=== PATIENT | male | born 1945 | race Caucasian/White ===

== ENCOUNTER 2017-11-10 08:25 | Day surgery (SDC) | payer MEDICARE ==
[2017-11-08 11:09] VITALS: BMI 26.6
[~2017-11-10 08:25] MED LIST: LACTATED RINGERS 1,000 ML IV SCH
[2017-11-10] MEDS ORDERED: LIDOCAINE 1% 20 ML VIAL (10MG/ML) FOR IV START INTRADERMA ONE (10:08)
[2017-11-10 10:12] VITALS: TEMP 97
[2017-11-10] MEDS ORDERED: LIDOCAINE 1% INJ 10MG/ML (20 ML MDV) ONE (10:48)
[2017-11-10] MEDS ORDERED: PROPOFOL 10 MG/ML 20 ML VIAL IV ONE (10:48)
--- NOTE | 2017-11-10 11:12 | P.PCN ---
Date of Procedure: 11/10/17 Procedure(s) Performed: Procedure: Esophagogastroduodenoscopy and biopsy. Preoperative diagnosis: History of Banks's esophagus. Postoperative diagnosis: Banks's esophagus, multiple biopsies obtained at 2 different levels to rule out dysplasia. Preparation sedation: Were provided by anesthesia. Brief clinical history: The patient is 72-year-old male with history of reflux disease and Banks's esophagus. His last exam was October 30, 2015. He remains on PPI on an every other day schedule. No dysphagia, bleeding or anemia. This is part of his surveillance. Procedure: With the patient on his left lateral decubitus position and after informed consent and adequate sedation, I passed the Olympus-GIF 160 video upper endoscope through the cricopharyngeus down the esophagus. The autumn-GE junction was at around 25 cm from the incisors. Proximal to that the esophagus did not show any erosions or ulcers. There were no strictures. The tubular esophagus continued for another 10 cm or so defining a segment of Banks's esophagus. Then there is a moderately sized hiatal hernia following which the endoscope was advanced to the rest of the stomach which was insufflated with air and inspected in detail including the retroflex view in the cardia. Finally , the endoscope was passed through the pylorus into the duodenum. The stomach and duodenum appeared within normal limits. The Banks's segment did not show any ulcers or masses or strictures. I obtained multiple biopsies from the Banks's esophagus at 2 levels 5 cm apart with 4 pieces, one from each quadrant. 2 different set of specimens were sent to pathology. The patient tolerated the procedure well. Plan: The patient was reassured. Will await pathology results. I anticipate repeating this exam in around 2-3 years. He will follow up with you as planned.
[2017-11-10 11:20] VITALS: RESP 18
[2017-11-10 11:52] VITALS: BP 125/84; PULSE 59
== END 2017-11-10 12:10 | disposition home or self-care (01) ==
LOC: ORWHC2ENDO 08:25
DX: K22.70 Barrett's esophagus without dysplasia (principal); K44.9 Diaphragmatic hernia without obstruction or gangrene; K21.9 Gastro-esophageal reflux disease without esophagitis; M19.90 Unspecified osteoarthritis, unspecified site; Z79.899 Other long term (current) drug therapy
CPT/HCPCS: 88305; 43239; J2001; J2704

== ENCOUNTER → 2018-07-20 | Outpatient (CLI) | payer MEDICARE | END | disposition home or self-care (01) | LOC: LABPAT 08:00 | PROVIDERS: ATTEND Orthopaedic Surgery | DX: Z01.812 Encounter for preprocedural laboratory examination (principal) | CPT/HCPCS: 87070 ==

== ENCOUNTER 2018-08-14 08:25 | Inpatient (IN) | payer MEDICARE ==
--- NOTE | 2018-08-13 11:59 | HP ---
HISTORY AND PHYSICAL REASON FOR ADMISSION: Surgery 08/14/2018 Doug Kent is a 73-year-old patient seen with symptomatic left knee osteoarthritis. We discussed treatment options. He elected to proceed with left total knee arthroplasty. Consent was obtained. Medical clearance was provided by Dr. Huang. PAST MEDICAL HISTORY: Gastroesophageal reflux disease. PAST SURGICAL HISTORY: Right total knee arthroplasty. DAILY MEDICATIONS: Prilosec, ibuprofen, aspirin. ALLERGIES: None. SOCIAL HISTORY: Denies current tobacco use. PHYSICAL EXAMINATION: Evaluation of the left knee range of motion -3 to 90. Tenderness medial joint line. Crepitus medial and patellofemoral compartments with range of motion. Pain with patellofemoral compression. Ligaments are stable. Hip rotation is without pain. Distal neurovascular exam is intact. RADIOGRAPHS: Radiographs of the left knee reveal severe osteoarthritic changes. IMPRESSION: 1. Left knee osteoarthritis. 2. Gastroesophageal reflux disease. PLAN: Left total knee arthroplasty. Surgery 08/14/2018. MMODL / IJN: [id number] /
[~2018-08-14 08:25] MED LIST changes: +ACETAMINOPHEN TAB 500 MG TAB PO ONE; +DEXAMETHASONE SOD PHOSPHATE 10 MG/ML 1 ML VIAL IV ONE; +HYDROmorphone 0.5 MG/0.5 ML SYRINGE IVP PRN; -LACTATED RINGERS 1,000 ML IV SCH; +MELOXICAM 7.5 MG TAB PO ONE; +MIDAZOLAM (PF) 2 MG/2 ML VIAL IV PRN; +ONDANSETRON 4 MG/2 ML VIAL IVP ONE; +PANTOPRAZOLE 40 MG TABLET PO SCH; +TRANEXAMIC ACID 1,000 MG in SODIUM CHLORIDE 0.9% 50 ML IVPB ONE; +ceFAZolin IN SWFI 2 GM/20 ML SYRINGE IVP ONE
[2018-08-14] MEDS: LACTATED RINGERS 1,000 ML IV SCH ×2 (08:47→14:09)
[2018-08-14] MEDS ORDERED: fentaNYL (PF) 50 MCG/ML 2 ML AMP IV ONE (09:07)
[2018-08-14] MEDS ORDERED: ROPIVACAINE 246.25 MG, EPINEPHrine 0.5 MG, KETOROLAC 30 MG, cloNIDine HCL/PF 80 MCG, WA... MISCELLANE ONE ×5 (09:11)
[2018-08-14] MEDS ORDERED: ROPIVACAINE 1,100 MG, SODIUM CHLORIDE 0.9% 500 ML 330 ML MISCELLANE PRN ×2 (09:28)
--- NOTE | 2018-08-14 09:29 | P.ONQ ---
Anesthesiology Proc Note - PNB - Peripheral Nerve Block Performed Left Adductor Canal Infusion Time Out Performed: Yes Procedure Start Time: :06 Procedure Stop Time: :16 Indication: Acute Post-Operative Pain, Analgesia, Requested by physician Sedation Type: Sedate with meaningful contact maintained Preparation: Sterile Prep Position: Supine Catheter: Indwelling Needle Types: On-Q Needle Size: 100mm (4") Needle Gauge: 21 Technique: Ultrasound Injectate: 0.5% Ropivacaine (see comment for volume) (20cc) Blood Aspirated: No Pain Paresthesia on Injection Noted: No Resistance on Injection: Normal Events: Uneventful and Well Tolerated
[2018-08-14] MEDS ORDERED: TRANEXAMIC ACID 1,000 MG/10 ML VIAL ONE (09:58)
[2018-08-14] MEDS ORDERED: SODIUM CHLORIDE 0.9% 100 ML BAG ONE (09:58)
[2018-08-14] MEDS ORDERED: MIDAZOLAM 2 MG/2 ML VIAL ONE (09:58)
[2018-08-14] MEDS ORDERED: fentaNYL (PF) 50 MCG/ML 2 ML AMP ONE (09:58)
[2018-08-14] MEDS ORDERED: ceFAZolin 3,000 MG in SODIUM CHLORIDE 0.9% IRRIGATIO 3,000 ML IRRIGATION ONE (10:31)
[2018-08-14] MEDS ORDERED: LACTATED RINGERS 1,000 ML IV ONE (11:56)
[2018-08-14] MEDS ORDERED: HYDROmorphone 0.5 MG/0.5 ML SYRINGE IVP PRN ×3 (12:00)
[2018-08-14] MEDS ORDERED: HYDROcodone/APAP 5-325MG 1 EACH TAB PO PRN ×2 (12:00)
[2018-08-14] MEDS ORDERED: NALOXONE 0.4 MG/ML 1 ML VIAL IV PRN (12:00)
[2018-08-14] MEDS ORDERED: ONDANSETRON 4 MG/2 ML VIAL IVP PRN (12:00)
--- NOTE | 2018-08-14 12:00 | P.OP ---
Date of Procedure: 08/14/18 Preoperative Diagnosis: Left knee osteoarthritis Postoperative Diagnosis: Left knee osteoarthritis Procedure(s) Performed: Left total knee arthroplasty Implants: 1. She attune size 7 cruciate retaining cemented femur 2. She attune size 7 fixed bearing cemented tibial baseplate 3. [place] attune cruciate retaining 5 mm polyethylene tibial insert 4. [place] attune 41 mm all polyethylene cemented patella Anesthesia: regional (Adductor canal catheter), local, spinal Surgeon: Thomas Varela Garnetter #1: Milan Garner Estimated Blood Loss (ml): 30 Pathology: other (Bone) Condition: stable Disposition: PACU Indications for Procedure: 73-year-old patient seen with symptomatic left knee osteoarthritis. After having treatment options discussed, he elected to proceed with total knee arthroplasty Operative Findings: See description of procedure Description of Procedure: Patient was taken to the operative suite after having an adductor canal catheter placed by the department of anesthesia. Patient underwent a spinal anesthetic by the department of anesthesia. Patient was given preoperative IV intake antibiotics and TXA. A well-padded tourniquet was placed about the left lower extremity. The lower extremity was then prepped and draped in the normal sterile orthopedic fashion. The extremity was elevated, a tourniquet was insufflated to 300. A standard anterior incision was made sharply through skin. Dissection was taken down through the subcutaneous soft tissues down to the extensor mechanism. A medial arthrotomy was performed, patella was everted and knee was flexed. There was advanced osteoarthritis noted. I introduced my distal intramedullary femoral drill. I then introduced the distal femoral cutting jig. [place] DIAZ secured the cutting jig with 2 pins. I held retractors in position while [place]Z performed the distal femoral resection through the guide area we now removed her distal femoral cutting guide. We now placed our 4-in-1 femoral cutting block and positioned and it was secured with 2 pins by [place] D[place]Z while I held the block in position. The distal femoral finishing was now completed. A proximal tibial cutting guide was positioned. I held the guide in the appropriate position with both hands well [place] DIAZ inserted stabilizing pins into the guide. Proximal tibial cut was made. We now placed a trial femoral component into position, along with an appropriate size tibial tray and insert. We now took the knee through range of motion and had full extension good flexion and good overall soft tissue balance noted. The patella was everted and stabilized with 2 towel clips held by [place] DIAZ while I performed a flush with patellar quad tendon utilizing a fresh sawblade. We templated the patella, appropriate drill holes were made. An appropriate trial patella was positioned, knee was taken through full range of motion with the patella tracking very nicely. The trial patella was removed. Drill holes were made through the femoral component. All trial components were removed after marking off the appropriate rotation of the tibia. Retractors were now positioned along the proximal tibia. An appropriate keel punch was made with the appropriate size tibial guide by myself on [place] D[place]Z assisted by holding retractors. At this point appropriate size implants were chosen and opened. The joint was irrigated copiously with pulse lavage mechanical irrigation. The posterior capsule was infiltrated with local analgesic. The wound was irrigated with pulse lavage mechanical irrigation. We mixed antibiotic methylmethacrylate. We placed the knee into flexion. We placed multiple retractors assisted by [place] D[place]Z to expose the proximal tibia. Once the methyl methacrylate was ready, the tibial component was cemented into place removing any excess methylmethacrylate form by both myself and [place] DIAZ. The femoral component was cemented into place removing the removing any excess methylmethacrylate performed by both myself and [place] DIAZ. We then inserted the appropriate size polyethylene tibial insert. We made sure that it was locked into position. We took the knee into full extension, and then back in a flexion making sure we had removed any excess methylmethacrylate. The patellar component was then cemented down and secured with clamp. Excess methylmethacrylate removed. We kept the knee in full extension, patellar clamp in position until methylmethacrylate had hardened. Once it had hardened the patellar clamp was removed. The knee was taken through full range of motion. The patella tracked nicely. There was good soft tissue balancing. The tourniquet was now released. Additional hemostasis was achieved via electrocautery. A second gram of TXA was given. The wound again was irrigated with pulse lavage mechanical irrigation. The superficial soft tissues were infiltrated local analgesic. The extensor mechanism was repaired with Vicryl. We checked the repair with range of motion and it was stable. The subcutaneous soft tissues were repaired with Vicryl in layers. The skin was approximated with pernio/Dermabond. Sterile dressings were applied followed by loose web roll and Festus bandage. The patient was transferred to a bed, and taken to recovery in stable and satisfactory condition. North DIAZ assisted with this complex procedure.
--- NOTE | 2018-08-14 12:50 | XR ---
EXAMINATION TYPE: XR knee limited LT DATE OF EXAM: 08/14/2018 CLINICAL HISTORY: Left knee pain and arthritis status post total knee replacement. TECHNIQUE: Portable AP and crosstable lateral views of the left knee are obtained immediately postop eratively. COMPARISON: None FINDINGS: Metallic hardware from total left knee arthroplasty is seen and appears satisfactory in al ignment and position. There is evidence of recent surgery with subcutaneous emphysema and soft tissu e swelling noted. IMPRESSION: METALLIC HARDWARE FROM TOTAL LEFT KNEE ARTHROPLASTY IS SATISFACTORY IN ALIGNMENT.
[2018-08-14 13:34] VITALS: BMI 28.3
--- NOTE | 2018-08-14 14:40 | P.CONS ---
History of Present Illness - Reason for Consult Consult date: 08/14/18 medical management Requesting physician: Thomas Varela - History of Present Illness This is a 73-year-old male who presented for an elective total left knee arthroplasty with Dr. Varela. Patient has known past medical history of GERD , osteoarthritis, Banks's esophagus in which he follows with Dr. Escobedo, patient reports last EGD proximally 3 years ago. Patient also reports he's had multiple orthopedic surgeries including his right total knee approximately 3 years ago. At this time patient is resting comfortably in bed. Patient denies any complaints at this time. Patient's heart rate is low in the 50s. Patient denies any significant cardiac history. Heart rate does seem to be improving we 'll place patient on telemetry throughout night and continue to monitor closely. Patient denies chest pain or shortness of breath. Patient denies nausea vomiting or diarrhea. Patient denies any urinary burning or frequency. Review of Systems please refer to HPI otherwise unremarkable Past Medical History Past Medical History: GERD/Reflux, Osteoarthritis (OA) Additional Past Medical History / Comment(s): HX OF BARRETTS ESOPHAGUS., LEFT KNEE PAIN - WEARS SLEEVE SUPPORT. , PATIENT STATES RECENT UTI AND COMPLETED ANTIBIOTIC PER DR GARCIA. History of Any Multi-Drug Resistant Organisms: None Reported Past Surgical History: Joint Replacement, Orthopedic Surgery Additional Past Surgical History / Comment(s): Right leg fx. & repair, EGD, colonoscopy, rt knee replacement, Carpal Tunnel Bilat. Past Anesthesia/Blood Transfusion Reactions: No Reported Reaction Past Psychological History: No Psychological Hx Reported Smoking Status: Former smoker Past Alcohol Use History: Occasional Additional Past Alcohol Use History / Comment(s): started smoking at age 14, smoked 1 ppd, quit 35 years ago (1983) Past Drug Use History: None Reported - Past Family History Father Family Medical History: Cancer Additional Family Medical History / Comment(s): at age 47, unknown cancer. Mother Family Medical History: No Reported History Additional Family Medical History / Comment(s): . Medications and Allergies Home Medications Medication Instructions Recorded Confirmed Type Aspirin 81 mg PO DAILY 11/27/13 08/14/18 History Omeprazole [PriLOSEC] 20 mg PO Q2D 11/08/17 08/14/18 History Ibuprofen 200 mg PO DAILY PRN 08/10/18 08/14/18 History Multivitamins, Thera [Multivitamin 1 tab PO DAILY 08/10/18 08/14/18 History (formulary)] Allergies Allergy/AdvReac Type Severity Reaction Status Date / Time No Known Allergies Allergy Verified 08/14/18 08:36 Physical Exam Vitals: Vital Signs Temp Pulse Resp BP Pulse Ox 08/14/18 13:00 61 16 106/64 94 L 08/14/18 12:46 55 L 16 100/63 97 08/14/18 12:31 58 L 16 106/68 95 08/14/18 12:23 97.0 F L 61 18 102/66 97 08/14/18 08:45 96.7 F L 67 16 138/85 99 Intake and Output 08/13/18 08/14/18 08/14/18 22:59 06:59 14:59 Intake Total 1151 Output Total 30 Balance 1121 Intake: IV 1151 Output: Estimated Blood Loss 30 1. Status post total right knee arthroplasty with Dr. Varela. Patient currently on Lovenox for DVT prophylaxis pain meds per orthopedic surgery 2. History of GERD 3. History of osteoarthritis 4. History of Banks's esophagus. Patient reports that she follows with Dr. Carter and receives EGD every 3 years 5. Bradycardia. Heart rate in the 50s. Patient denies any cardiac history. Patient denies chest pain. Place patient on telemetry likely due to medications Thank you for this consultation we'll continue to follow patient closely throughout stay
[2018-08-14] MEDS: ceFAZolin IN SWFI 2 GM/20 ML SYRINGE IVP SCH (17:38)
[2018-08-14] MEDS: ENOXAPARIN 30 MG/0.3 ML SYRINGE SQ SCH (20:29)
[2018-08-14] MEDS ORDERED: SENNOSIDES-DOCUSATE SODIUM 1 EACH TAB PO SCH (21:00)
[2018-08-15] MEDS: ceFAZolin IN SWFI 2 GM/20 ML SYRINGE IVP SCH (03:57)
--- NOTE | 2018-08-15 07:07 | P.PN ---
Progress Note - Text Progress Note Date: 08/15/18 Patient is postop day 1 from total knee replacement doing very well. Catheter is in place. Required no when necessary medications. Has full range of motion of the lower extremities. Has been able to ambulate. Denies any numbness or tingling in the lower extremities. On-Q pump is functional, site is clean and dry. Patient is likely to be discharged home today.
[2018-08-15 08:26] LABS: ALT 14 U/L (21-72); AST 22 U/L (17-59); Albumin 3.2 g/dL (3.5-5.0); Alkaline Phosphatase 47 U/L (38-126); Anion Gap 7 mmol/L; Blood Urea Nitrogen 18 mg/dL (9-20); Calcium 8.7 mg/dL (8.4-10.2); Carbon Dioxide 26 mmol/L (22-30); Chloride 106 mmol/L (98-107); Glucose 93 mg/dL (74-99); Potassium 4.3 mmol/L (3.5-5.1); Sodium 139 mmol/L (137-145); Total Bilirubin 0.7 mg/dL (0.2-1.3); Total Protein 6.1 g/dL (6.3-8.2)
[2018-08-15] MEDS: LACTATED RINGERS 1,000 ML IV SCH ×2 (08:27)
[2018-08-15 08:32] VITALS: BP 117/77; PULSE 67; RESP 16; TEMP 98.2
[2018-08-15 08:49] LABS: Basophils % (A) 0 %; Eosinophils # (A) 0.1 k/uL (0-0.7); Eosinophils % (A) 1 %; HCT 38.4 % (39.0-53.0); HGB 12.4 gm/dL (13.0-17.5); Lymphocytes # (A) 1.8 k/uL (1.0-4.8); Lymphocytes % (A) 21 %; MCH 31.3 pg (25.0-35.0); MCHC 32.2 g/dL (31.0-37.0); MCV 97.3 fL (80.0-100.0); Mean Platelet Volume 6.8; Monocytes # (A) 0.7 k/uL (0-1.0); Monocytes % (A) 8 %; Neutrophils % (A) 69 %; Platelet Count 182 k/uL (150-450); RBC 3.95 m/uL (4.30-5.90); WBC 8.6 k/uL (3.8-10.6)
[2018-08-15] MEDS ORDERED: MELOXICAM 7.5 MG TAB PO SCH (09:00)
[2018-08-15] MEDS: ENOXAPARIN 30 MG/0.3 ML SYRINGE SQ SCH (10:29)
--- NOTE | 2018-08-15 10:41 | P.PN ---
Subjective Progress Note Date: 08/15/18 This is a 73-year-old male who presented for an elective total left knee arthroplasty with Dr. Varela. Patient has known past medical history of GERD , osteoarthritis, Banks's esophagus in which he follows with Dr. Escobedo, patient reports last EGD proximally 3 years ago. Patient also reports he's had multiple orthopedic surgeries including his right total knee approximately 3 years ago. At this time patient is resting comfortably in bed. Patient denies any complaints at this time. Patient's heart rate is low in the 50s. Patient denies any significant cardiac history. Heart rate does seem to be improving we 'll place patient on telemetry throughout night and continue to monitor closely. Patient denies chest pain or shortness of breath. Patient denies nausea vomiting or diarrhea. Patient denies any urinary burning or frequency. On 08/15/2018 patient is currently postop day 1. Patient alert and oriented 3 resting comfortably in bed. Patient is complaining of some discomfort but states he has been able to manage with pain meds and ambulation. Planning for DC'd today home per orthopedic services. Patient denies chest pain or shortness of breath. Patient denies nausea vomiting or diarrhea. Patient denies any urinary burning or frequency. Objective - Vital Signs Vital signs: Vital Signs Temp 98.2 F 08/15/18 08:30 Pulse 67 08/15/18 08:30 Resp 16 08/15/18 08:30 BP 117/77 08/15/18 08:30 Pulse Ox 98 08/15/18 08:30 Intake & Output 08/14/18 08/15/18 08/15/18 18:59 06:59 18:59 Intake Total 1151 1920 296 Output Total 30 Balance 1121 1920 296 Intake: IV 1151 Intake, IV Titration 1120 Amount Lactated Ringers 1,000 ml 1120 @ 70 mls/hr IV .[id number] MARTHA Rx#:[id number] Oral 800 296 Output: Estimated Blood Loss 30 Other: Voiding Method Urinal # Voids 0 3 - Exam Head normocephalic Neck supple Lungs clear to auscultation bilaterally no wheezing or crackles Heart regular rate and rhythm S1-S2, no rub or gallop Abdomen is soft nontender nondistended positive bowel sounds no hepatosplenomegaly Extremities no edema. Dressing to left knee clean dry and intact Neuro alert and orientated to 3 - Labs CBC & Chem 7: 08/15/18 07:23 08/15/18 07:23 Labs: Abnormal Lab Results - Last 24 Hours (Table) 08/15/18 08/15/18 Range/Units 07:23 07:23 RBC 3.95 L (4.30-5.90) m/uL Hgb 12.4 L (13.0-17.5) gm/dL Hct 38.4 L (39.0-53.0) % ALT 14 L (21-72) U/L Total Protein 6.1 L (6.3-8.2) g/dL Albumin 3.2 L (3.5-5.0) g/dL Assessment and Plan Assessment: 1. Status post total right knee arthroplasty with Dr. Varela. Patient currently on Lovenox for DVT prophylaxis pain meds per orthopedic surgery. Patient is currently postop day 1. 2. History of GERD 3. History of osteoarthritis 4. History of Banks's esophagus. Patient reports that she follows with Dr. Carter and receives EGD every 3 years 5. Bradycardia. Heart rate in the 50s. Patient denies any cardiac history. Patient denies chest pain. Place patient on telemetry likely due to medications. Resolved. Heart rate has improved to 60 Possible D/C today per orthopedic services. Patient planning to be DC'd home Thank you for this consultation we will continue to follow patient closely throughout stay
--- NOTE | 2018-08-15 10:58 | P.PN ---
Subjective Progress Note Date: 08/15/18 Principal diagnosis: Status post left total knee arthroplasty Patient evaluated bedside, resting comfortably. Denies any acute pain. Denies shortness of breath or chest pain. Objective - Vital Signs Vital signs: Vital Signs Temp 98.2 F 08/15/18 08:30 Pulse 67 08/15/18 08:30 Resp 16 08/15/18 08:30 BP 117/77 08/15/18 08:30 Pulse Ox 98 08/15/18 08:30 Intake & Output 08/14/18 08/15/18 08/15/18 18:59 06:59 18:59 Intake Total 1151 1920 296 Output Total 30 Balance 1121 1920 296 Intake: IV 1151 Intake, IV Titration 1120 Amount Lactated Ringers 1,000 ml 1120 @ 70 mls/hr IV .[id number] MARTHA Rx#:[id number] Oral 800 296 Output: Estimated Blood Loss 30 Other: Voiding Method Urinal # Voids 0 3 - Exam Lower lower extremity: Incision is clean, dry, and intact. The exofin fusion tape is in good condition. There is minimal soft tissue swelling and ecchymosis surrounding the medial and lateral aspects of the incision. Calf is soft, no tenderness with palpation. Plantar flexion, dorsiflexion, EHL, FHL are intact. Sensory exam to light touch throughout the extremity is intact, dorsal pedis pulses 2+. - Labs CBC & Chem 7: 08/15/18 07:23 08/15/18 07:23 Labs: Abnormal Lab Results - Last 24 Hours (Table) 08/15/18 08/15/18 Range/Units 07:23 07:23 RBC 3.95 L (4.30-5.90) m/uL Hgb 12.4 L (13.0-17.5) gm/dL Hct 38.4 L (39.0-53.0) % ALT 14 L (21-72) U/L Total Protein 6.1 L (6.3-8.2) g/dL Albumin 3.2 L (3.5-5.0) g/dL Assessment and Plan Plan: Assessment: Postop day 1 status post left total knee arthroplasty Plan: Pain control, discharged home on tramadol 50 mg GI and DVT prophylaxis, aspirin 81 mg twice a day Wound care instructions discussed Home therapy and nursing after discharge Medical recommendations Discharge planning: Patient will be discharged home today Time with Patient: Less than 30
--- NOTE | 2018-08-15 11:01 | P.DS ---
Providers Date of admission: 08/14/18 08:25 Expected date of discharge: 08/15/18 Attending physician: Thomas Varela Consults: 08/14/18 12:00 Consult Physician Routine Consulting Provider: Martine Huang Consult Reason/Comments: Medical management Do you want consulting provider notified?: Yes Primary care physician: Martine Huang [place] [facility] Course: Date of admission: 08/14/2018 Date of discharge: 08/15/2018 Admission diagnosis: Status post left total knee arthroplasty Discharge diagnosis: Same Attending physician: Dr. Varela Surgical procedures: Left total knee arthroplasty Brief history: Patient is a 73-year-old male with a history of progressive primary left knee osteoarthritis. At this point patient has failed conservative treatment measures and has opted to proceed with a elective left total knee arthroplasty. Hospital course: Details of patient's surgery can be found in operative report. Patient tolerated the procedure well and was subsequently transported to orthopedic floor. Patient's orthopeidc and medical care was provided daily. Patient had daily laboratory tests performed for evaluation of overall blood counts. Patient had daily physical therapy to include strengthening range of motion as well as education with walker ambulation. Patient had daily CPM usage as part of their physical therapy program. Patient was treated with Lovenox for their postoperative DVT prophylaxis during their inpatient stay. Patient was noted to have a relatively uneventful postoperative course. Patient reported satisfactory pain control with oral pain medications by postoperative day 0. Patient showed satisfactory progress with physical therapy. Patient moved steadily through the program and had no difficulty meeting the goals by postoperative day 1. Given patient's otherwise satisfactory course and having met physical therapy goals, plan is to discharge patient home on postoperative day 1. Discharge condition/disposition: Patient will be discharged home in stable condition. Discharge medications: Instructions are given on resumption of patient's normal daily medications per primary care recommendation, in addition patient will be prescribed tramadol 50 mg, Colace 100 mg, aspirin 81 mg. Discharge instructions: 1. Wound care and infection precautions, keep incision dry and covered while showering, no lotions, creams, moisturizers. No soaking, tubs, pools, hottubs. Do not scrub over the incision. 2. Weight-bear as tolerated with walker / cane until follow-up. 3. Ice and elevate when necessary. Do not exceed 20 minutes per hour with ice pack. 4. Utilize compression sleeve until seen at first follow up appointment. 5. Visiting nursing care. 6. Home physical therapy including home CPM. 7. Pain meds and anticoagulants per prescription. 8. Pain medication has potential to cause constipation. Increase oral fluid and fiber intake. Contact primary care provider if you have not had a bowel movement within 48 hours after discharge 9. No anti-inflammatory medication until discussed at first post operative visit, this including Motrin, Aleve, Mobic, Diclofenac. 10. Follow up in office at 2 weeks postop with [place] Garner PA-C 11. Follow up with your primary care doctor 7-10 days after discharge. 12. Contact [facility] with any questions, . Procedures: Left total knee arthroplasty Patient Condition at Discharge: Good Plan - Discharge Summary Discharge Rx Participant: Yes New Discharge Prescriptions: New Aspirin [Adult Low Dose Aspirin EC] 81 mg PO BID #60 tablet. Docusate [Colace] 100 mg PO DAILY #30 capsule traMADol HCl [Ultram] 50 mg PO Q6H PRN #28 tab PRN Reason: Pain No Action Omeprazole [PriLOSEC] 20 mg PO Q2D Multivitamins, Thera [Multivitamin (formulary)] 1 tab PO DAILY Discharge Medication List Omeprazole [PriLOSEC] 20 mg PO Q2D 11/08/17 [History] Multivitamins, Thera [Multivitamin (formulary)] 1 tab PO DAILY 08/10/18 [History ] Aspirin [Adult Low Dose Aspirin EC] 81 mg PO BID #60 tablet. 08/15/18 [Rx] Docusate [Colace] 100 mg PO DAILY #30 capsule 08/15/18 [Rx] traMADol HCl [Ultram] 50 mg PO Q6H PRN #28 tab 08/15/18 [Rx] Follow up Appointment(s)/Referral(s): Milan Garner PAC [PHYSICIAN TOOTH CLERK] - 08/30/18 2:10 pm Activity/Diet/Wound Care/Special Instructions: Orthopedic Discharge Instructions: 1. Wound care and infection precautions, keep incision dry and covered while showering, no lotions, creams, moisturizers. No soaking, pools, hot tubs. Do not scrub over incision. 2. Weight-bear as tolerated with walker / cane until follow-up. 3. Ice and elevate when necessary. Do not exceed 20 minutes per hour with ice pack. 4. Utilize compression sleeve until seen at first follow up appointment. 5. Pain meds and anticoagulants per prescription. 6. Pain medication has potential to cause constipation. Increase oral fluid and fiber intake. Contact primary care provider if you have not had a bowel movement within 48 hours after discharge. 7. No anti-inflammatory medication until discussed at first post operative visit, this including Motrin, Aleve, Mobic, Diclofenac. 8. Follow up in office at 2 weeks postop with [place] PA-C 9. Follow up with your primary care doctor 7-10 days after discharge. 10. Contact [facility] with any questions, . Discharge Disposition: HOME WITH HOME HEALTH SERVICES
[2018-08-15] MEDS ORDERED: MULTIVITAMINS, THERA 1 EACH TAB PO SCH (12:00)
== END 2018-08-15 13:40 | disposition home health service (06) | DRG 470 ==
LOC: 2ORMAIN 08:25 → 4SSUR 12:14
PROVIDERS: ADMIT Orthopaedic Surgery; ATTEND Orthopaedic Surgery
PROC: 0SRD0J9 Replacement of Left Knee Joint with Synthetic Substitute, Cemented, Open Approach (ICD-10-PCS; principal; 2018-08-14 10:25)
DX: M17.12 Unilateral primary osteoarthritis, left knee (principal); K21.9 Gastro-esophageal reflux disease without esophagitis; K22.70 Barrett's esophagus without dysplasia; Z79.82 Long term (current) use of aspirin; Z87.891 Personal history of nicotine dependence; Z96.651 Presence of right artificial knee joint; Z87.440 Personal history of urinary (tract) infections; Z80.9 Family history of malignant neoplasm, unspecified; R00.1 Bradycardia, unspecified; Z79.899 Other long term (current) drug therapy
CPT/HCPCS: 80053; 85025; 88300

== ENCOUNTER 2024-06-29 13:45 | Emergency (ER) | payer MEDICARE ==
[2024-06-29 13:56] VITALS: RESP 18
--- NOTE | 2024-06-29 14:28 | ED ---
General Adult HPI - General Source: patient, family, RN notes reviewed Mode of arrival: wheelchair Limitations: physical limitation <Delvis Lizarraga - Last Filed: 06/29/24 14:57> <Rodri Shah - Last Filed: 06/29/24 22:56> - General Chief complaint: Dizziness Stated complaint: Carbon monoxide poisoning Time Seen by Provider: 06/29/24 13:55 - History of Present Illness Initial comments: This is an 79-year-old male who presents to the emergency department complaining of dizziness. Patient states he was out hunting yesterday and he was in a hunting blind with a propane tank and he thought maybe he did not open up the window and off. Patient states the dizziness did not start till he was correction back to the house and walking up the path. Patient states everything started to spin and then he became violently nauseated and Vomiting. Patient states today the vomiting is not as bad but he remains dizzy and is nauseous. Patient states that he has no chest pain no difficulty breathing but has difficulty walking and he needs support because he is so off balance. (Delvis Lizarraga) - Related Data Home Medications Medication Instructions Recorded Confirmed Omeprazole [PriLOSEC] 20 mg PO Q2D 11/08/17 08/14/18 Multivitamins, Thera [Multivitamin 1 tab PO DAILY 08/10/18 08/14/18 (formulary)] Previous Rx's Medication Instructions Recorded Aspirin [Adult Low Dose Aspirin EC] 81 mg PO BID #60 tablet. 08/15/18 Docusate [Colace] 100 mg PO DAILY #30 capsule 08/15/18 traMADol HCl [Ultram] 50 mg PO Q6H PRN #28 tab 08/15/18 Meclizine [Antivert] 25 mg PO TID PRN 7 Days #21 tab 06/29/24 Allergies Allergy/AdvReac Type Severity Reaction Status Date / Time No Known Allergies Allergy Verified 06/29/24 13:49 Review of Systems ROS Other: All systems not noted in ROS Statement are negative. <Delvis Lizarraga - Last Filed: 06/29/24 14:57> ROS Other: All systems not noted in ROS Statement are negative. <Rodri Shah - Last Filed: 06/29/24 22:56> ROS Statement: Those systems with pertinent positive or pertinent negative responses have been documented in the HPI. Past Medical History Past Medical History: GERD/Reflux Additional Past Medical History / Comment(s): Arthritis R wrist, R shoulder History of Any Multi-Drug Resistant Organisms: None Reported Past Surgical History: Joint Replacement, Orthopedic Surgery Additional Past Surgical History / Comment(s): Right leg fx. & repair, EGD, colo noscopy, rt knee replacement, Carpal Tunnel Bilat. Past Anesthesia/Blood Transfusion Reactions: No Reported Reaction Past Psychological History: No Psychological Hx Reported Smoking Status: Former smoker Past Alcohol Use History: None Reported Past Drug Use History: None Reported - Past Family History Father Family Medical History: Cancer Additional Family Medical History / Comment(s): at age 47, unknown cancer. Mother Family Medical History: No Reported History Additional Family Medical History / Comment(s): . <Delvis Lizarraga - Last Filed: 06/29/24 14:57> General Exam Limitations: physical limitation <Delvis Lizarraga - Last Filed: 06/29/24 14:57> - General Exam Comments Initial Comments: GENERAL: Patient is well-developed and well-nourished. Patient is nontoxic and well- hydrated and is in mild distress. ENT: Neck is soft and supple. No significant lymphadenopathy is noted. Oropharynx is clear. Moist mucous membranes. Neck has full range of motion without eliciting any pain. EYES: The sclera were anicteric and conjunctiva were pink and moist. Extraocular movements were intact and pupils were equal round and reactive to light. Eyelids were unremarkable. PULMONARY: Unlabored respirations. Good breath sounds bilaterally. No audible rales rhonchi or wheezing was noted. CARDIOVASCULAR: There is a regular rate and rhythm without any murmurs gallops or rubs. ABDOMEN: Soft and nontender with normal bowel sounds. SKIN: Skin is clear with no lesions or rashes and otherwise unremarkable. NEUROLOGIC: Patient is alert and oriented x3. Cranial nerves II through XII are grossly intact. Motor and sensory are also intact. Normal speech, volume and content. Symmetrical smile. Finger-nose testing is normal bilaterally MUSCULOSKELETAL: Normal extremities with adequate strength and full range of motion. LYMPHATICS: No significant lymphadenopathy is noted PSYCHIATRIC: Normal psychiatric evaluation. (Delvis Lizarraga) Course Vital Signs 06/29/24 06/29/24 06/29/24 13:49 14:56 17:59 Temperature 98.1 F 98.5 F 98 F Pulse Rate 70 62 69 Respiratory 18 18 18 Rate Blood Pressure 146/87 148/81 136/89 O2 Sat by Pulse 97 98 95 Oximetry Medical Decision Making <LizarragaDelvis - Last Filed: 06/29/24 14:57> - Lab Data Result diagrams: 06/29/24 14:35 06/29/24 14:35 <Rodri Shah - Last Filed: 06/29/24 22:56> - Medical Decision Making EKG is interpreted by myself. EKG shows a sinus rhythm at 62 bpm ME interval is 168 QRS is 88 QT interval is 420 QTc is 426. Patient's EKG shows no ST segment elevation or depression Was pt. sent in by a medical professional or institution ([facility], [employer], urgent care, hospital, or prison...) When possible be specific @ -[No] Did you speak to anyone other than the patient for history (EMS, parent, family, police, friend...)? What history was obtained from this source @ -[No] Did you review nursing and triage notes (agree or disagree)? Why? @ -[I reviewed and agree with nursing and triage notes] Were old charts reviewed (outside hosp., previous admission, EMS record, old EKG, old radiological studies, urgent care reports/EKG's, prison records)? Report findings @ -[No old charts were reviewed] Differential Diagnosis? @ -Differential Dizziness: Benign paroxysmal positional Vertigo, Meniere's disease, otitis media, acoustic neuroma, vertebrobasilar insufficiency, cerebellar stroke, encephalitis, hypovolemic, arrhythmia, coronary artery syndrome, anemia, this is not meant to be an all-inclusive list EKG interpreted by me (3pts min.). @ -[As above] X-rays interpreted by me (1pt min.). @ -[None done] CT interpreted by me (1pt min.). @ -[None done] U/S interpreted by me (1pt. min.). @ -[None done] What testing was considered but not performed or refused? (CT, X-rays, U/S, labs)? Why? @ -[None] What meds were considered but not given or refused? Why? @ -[None] Did you discuss the management of the patient with other professionals (professionals i.e. DrRafy, PA, [employer], lab, RT, psych nurse, geriatric social worker, public policy manager, teacher, soil science technical officer, case management assistant)? Give summary @ -[No] Was smoking cessation discussed for >3mins.? @ -[No] Was critical care preformed (if so, how long)? @ -[No] Were there social determinants of health that impacted care today? How? (Homelessness, low income, unemployed, alcoholism, drug addiction, transportation, low edu. Level, literacy, decrease access to med. care, alf, rehab)? @ -[No] Was there de-escalation of care discussed even if they declined (Discuss DNR or withdrawal of care, Hospice)? DNR status @ -[No] What co-morbidities impacted this encounter? (DM, HTN, Smoking, COPD, CAD, Cancer, CVA, ARF, Chemo, Hep., AIDS, mental health diagnosis, sleep apnea, morbid obesity)? @ -[None] Was patient admitted / discharged? Hospital course, mention meds given and route, prescriptions, significant lab abnormalities, going to OR and other pertinent info. @ -Dr. Shah will take over the care of this patient at 3 PM (Delvis Lizarraga) Patient is an 79-year-old male who was signed out to me by previous provider pending workup for vertigo. Patient thought it might be carbon monoxide poisoning or exposure. 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 States he began having vertiginous symptoms shortly after leaving the blind. They progressed and continued today which is why presents for further evaluation. Was given IV fluids, Antivert, Valium for his symptoms which did seem to improve them but patient is still symptomatic at this time. Vertiginous workup ordered and was pending. Patient's laboratory studies including carbon monoxide level are all within acceptable limits. Troponin is undetectable. Patient's chest x-ray asinterpreted by myself shows no obvious acute cardiopulmonary process. CT brain and CT angiogram of the head and neck as interpreted by myself revealed no obvious acute process but patient does have calcifications in both basal ganglia as well as cerebellum which could be seen in the setting of Fahr's disease or possible chronic carbon monoxide poisoning. Patient currently does not have acute carbon monoxide toxicity as his level is within acceptable limits. On reevaluation, patient remains mildly vertiginous, however he is improved. Was found that patient if admitted, would not be seen by neurology as we do not have neurology available this weekend at her facility. I did discuss this with the patient, and as he is ambulatory, with minimal symptoms she would like to go home and follow-up outpatient with his PCP for neurology evaluation. He will be given a prescription for Antivert. Strict return precautions discussed. Discussed the case with the PCP Dr. Huang who did inform me that neurology is not available at our facility over the weekend. Diagnosis/symptom? @ -Vertigo Acute, or Chronic, or Acute on Chronic? @ -Acute Uncomplicated (without systemic symptoms) or Complicated (systemic symptoms)? @ -Complicated Side effects of treatment? @ -None Exacerbation, Progression, or Severe Exacerbation] @ -No Poses a threat to life or bodily function? @ -Unlikely at this time Diagnosis/symptom? @ -Intracranial calcification Acute, or Chronic, or Acute on Chronic? @ -Likely chronic Uncomplicated (without systemic symptoms) or Complicated (systemic symptoms)? @ -Unknown Side effects of treatment? @ -None Exacerbation, Progression, or Severe Exacerbation] @ -No Poses a threat to life or bodily function? @ -Potentially, yes but unlikely in the acute setting. (Rodri Shah) - Lab Data Lab Results 06/29/24 06/29/24 06/29/24 Range/Units 14:35 14:35 14:35 WBC 7.0 (3.8-10.6) k/uL RBC 4.78 (4.30-5.90) m/uL Hgb 15.1 (13.0-17.5) gm/dL Hct 46.3 (39.0-53.0) % MCV 96.8 (80.0-100.0) fL MCH 31.6 (25.0-35.0) pg MCHC 32.6 (31.0-37.0) g/dL RDW 12.7 (11.5-15.5) % Plt Count 230 (150-450) k/uL MPV 7.4 Neutrophils % 75 % Lymphocytes % 18 % Monocytes % 5 % Eosinophils % 1 % Basophils % 1 % Neutrophils # 5.3 (1.3-7.7) k/uL Lymphocytes # 1.2 (1.0-4.8) k/uL Monocytes # 0.4 (0-1.0) k/uL Eosinophils # 0.0 (0-0.7) k/uL Basophils # 0.0 (0-0.2) k/uL PT 11.1 (10.0-12.5) sec INR 1.0 (<1.2) APTT 23.5 (22.0-30.0) sec Carbon Monoxide, Quant 1.4 (<10.0) % Sodium (137-145) mmol/L Potassium (3.5-5.1) mmol/L Chloride (98-107) mmol/L Carbon Dioxide (22-30) mmol/L Anion Gap mmol/L BUN (9-20) mg/dL Creatinine (0.66-1.25) mg/dL Est GFR (CKD-EPI)AfAm (>60 ml/min/1.73 sqM) Est GFR (CKD-EPI)NonAf (>60 ml/min/1.73 sqM) Glucose (74-99) mg/dL Calcium (8.4-10.2) mg/dL Magnesium (1.6-2.3) mg/dL Total Bilirubin (0.2-1.3) mg/dL AST (17-59) U/L ALT (4-49) U/L Alkaline Phosphatase (38-126) U/L Troponin I (0.000-0.034) ng/mL Total Protein (6.3-8.2) g/dL Albumin (3.5-5.0) g/dL 06/29/24 06/29/24 Range/Units 14:35 14:35 WBC (3.8-10.6) k/uL RBC (4.30-5.90) m/uL Hgb (13.0-17.5) gm/dL Hct (39.0-53.0) % MCV (80.0-100.0) fL MCH (25.0-35.0) pg MCHC (31.0-37.0) g/dL RDW (11.5-15.5) % Plt Count (150-450) k/uL MPV Neutrophils % % Lymphocytes % % Monocytes % % Eosinophils % % Basophils % % Neutrophils # (1.3-7.7) k/uL Lymphocytes # (1.0-4.8) k/uL Monocytes # (0-1.0) k/uL Eosinophils # (0-0.7) k/uL Basophils # (0-0.2) k/uL PT (10.0-12.5) sec INR (<1.2) APTT (22.0-30.0) sec Carbon Monoxide, Quant (<10.0) % Sodium 138 (137-145) mmol/L Potassium 3.8 (3.5-5.1) mmol/L Chloride 105 (98-107) mmol/L Carbon Dioxide 30 (22-30) mmol/L Anion Gap 3 mmol/L BUN 17 (9-20) mg/dL Creatinine 0.87 (0.66-1.25) mg/dL Est GFR (CKD-EPI)AfAm >90 (>60 ml/min/1.73 sqM) Est GFR (CKD-EPI)NonAf 82 (>60 ml/min/1.73 sqM) Glucose 124 H (74-99) mg/dL Calcium 9.1 (8.4-10.2) mg/dL Magnesium 2.2 (1.6-2.3) mg/dL Total Bilirubin 0.7 (0.2-1.3) mg/dL AST 24 (17-59) U/L ALT 14 (4-49) U/L Alkaline Phosphatase 80 (38-126) U/L Troponin I <0.012 (0.000-0.034) ng/mL Total Protein 7.5 (6.3-8.2) g/dL Albumin 4.2 (3.5-5.0) g/dL Disposition <Delvis Lizarraga - Last Filed: 06/29/24 14:57> Is patient prescribed a controlled substance at d/c from ED?: No Time of Disposition: 17:34 <Rodri Shah - Last Filed: 06/29/24 22:56> Clinical Impression: Vertigo Disposition: HOME SELF-CARE Condition: Fair Prescriptions: Meclizine [Antivert] 25 mg PO TID PRN 7 Days #21 tab PRN Reason: Vertigo Referrals: Martine Huang MD [Primary Care Provider] - 1-2 days
[2024-06-29 15:04] LABS: Basophils % (A) 1 %; Eosinophils % (A) 1 %; HCT 46.3 % (39.0-53.0); HGB 15.1 gm/dL (13.0-17.5); Lymphocytes # (A) 1.2 k/uL (1.0-4.8); Lymphocytes % (A) 18 %; MCH 31.6 pg (25.0-35.0); MCHC 32.6 g/dL (31.0-37.0); MCV 96.8 fL (80.0-100.0); Mean Platelet Volume 7.4; Monocytes # (A) 0.4 k/uL (0-1.0); Monocytes % (A) 5 %; Neutrophils # (A) 5.3 k/uL (1.3-7.7); Neutrophils % (A) 75 %; Platelet Count 230 k/uL (150-450); RBC 4.78 m/uL (4.30-5.90); RDW 12.7 % (11.5-15.5)
[2024-06-29 15:15] LABS: ALT 14 U/L (4-49); AST 24 U/L (17-59); African American GFR (CKD) >90 (>60 ml/min/1.73 sqM); Albumin 4.2 g/dL (3.5-5.0); Alkaline Phosphatase 80 U/L (38-126); Anion Gap 3 mmol/L; Blood Urea Nitrogen 17 mg/dL (9-20); Calcium 9.1 mg/dL (8.4-10.2); Carbon Dioxide 30 mmol/L (22-30); Chloride 105 mmol/L (98-107); Glucose 124 mg/dL (74-99); Magnesium 2.2 mg/dL (1.6-2.3); Non-African American GFR(CKD) 82 (>60 ml/min/1.73 sqM); Potassium 3.8 mmol/L (3.5-5.1); Sodium 138 mmol/L (137-145); Total Bilirubin 0.7 mg/dL (0.2-1.3); Total Protein 7.5 g/dL (6.3-8.2)
[2024-06-29 15:24] LABS: Partial Thromboplastin Time 23.5 sec (22.0-30.0); Prothrombin Time 11.1 sec (10.0-12.5)
[2024-06-29] MEDS: ONDANSETRON 4 MG/2 ML VIAL IVP STA (15:44)
[2024-06-29] MEDS: MECLIZINE 25 MG TAB PO STA (15:49)
--- NOTE | 2024-06-29 16:09 | XR ---
Chest, 2 view. HISTORY: Chest pain COMPARISON: None TECHNIQUE: PA and lateral views the chest are obtained. FINDINGS: The lungs are clear and there is no consolidative or interstitial opacity. There is no pleural effusion or pneumothorax. The heart is mildly prominent. The pulmonary vasculature is not overtly congested. The osseous structures are intact. IMPRESSION: Probable mild cardiomegaly without overt CHF. There is no acute cardiopulmonary disease. [facility], , 06/29/2024 4:06 PM
--- NOTE | 2024-06-29 16:40 | CT ---
EXAMINATION TYPE: CT brain wo con DATE OF EXAM: 06/29/2024 4:29 PM COMPARISON: None. CLINICAL INDICATION: Male, 79 years old with history of Dizziness, ataxia, TECHNIQUE: Brain: Axial CT images of the brain were obtained with coronal and sagittal reformats created and rev iewed. Contrast used: None. Oral contrast used: None. CT DLP: 1626.1 mGycm, Automated exposure control for dose reduction was used. FINDINGS: Brain: Extra-axial spaces: No abnormal extra-axial fluid collections. Ventricular system: Dilatation in proportion to cerebral atrophy. Cerebral parenchyma: Mineralization of basal ganglia. Scattered white matter high density calcificati ons Cerebral atrophy. No acute intraparenchymal hemorrhage or mass effect. The reynolds-white junction i s well differentiated. Scattered hypoattenuating areas are seen within the white matter. Cerebellum: Mineralization of the bilateral cerebellar hemispheres.. Mass effect: No evidence of midline shift. Intracranial vasculature: unremarkable Soft tissues: Normal. Calvarium/osseous structures: No depressed skull fracture. Paranasal sinuses and mastoid air cells: Mild scattered paranasal sinus disease. Visualized orbits: Orbital contents are intact. IMPRESSION: 1. No acute intracranial process. 2. 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
--- NOTE | 2024-06-29 17:02 | CT ---
EXAMINATION TYPE: CT angio head neck DATE OF EXAM: 06/29/2024 4:41 PM COMPARISON: CT head same day. CLINICAL INDICATION: Male, 79 years old with history of Ataxia; TECHNIQUE: Axially acquired helical CT angiogram of the head and neck was obtained with contrast. Axi al images are supplemented with 3D reconstructions and MIP images which were post-processed at an in dependent workstation. NASCET criteria used. Contrast used: mL of , Oral contrast used: None. CT DLP: 1626 mGycm, Automated exposure control for dose reduction was used. FINDINGS: CTA HEAD: No evidence of acute intracranial hemorrhage, mass effect, or midline shift. The ventricles, sulci, a nd cisterns are unremarkable. Vertebral arteries: The vertebral arteries are patent. Vertebral artery dominance: Codominant Basilar artery: The basilar artery is intact. The basilar artery bifurcation is normal. Internal Carotid arteries: The cervical, petrous, cavernous and supraclinoid segments are normal. LARA: Patent with no evidence of aneurysm. ACOM: Present without evidence of aneurysm. MCA: Patent with no evidence of aneurysm. WEBSPHERE COMMERCE ARCHITECT: Patent with no evidence of aneurysm. PCOM: Hypoplastic bilaterally. Dural sinuses: Patent. CTA NECK: Right Carotid System: The common carotid artery and external carotid artery are patent. The carotid bifurcation demonstrate s no evidence of hemodynamically significant stenosis. The remaining portions of the internal carotid artery demonstrate normal size without significant narrowing. Left Carotid System: The common carotid artery and external carotid artery are patent. The carotid bifurcation demonstrate s no evidence of hemodynamically significant stenosis. The remaining portions of the internal carotid artery demonstrate normal size without significant narrowing. Vertebral arteries are patent without evidence hemodynamically significant stenosis. There is a three-vessel aortic arch. The origins of the great vessels are patent. No evidence of hemo dynamically significant stenosis. Upper thorax: IMPRESSION: 1. No evidence of dissection of the cervical internal carotid arteries or vertebral arteries. 2. No any evidence of significant stenosis at the carotid bifurcations. 3. No evidence of intracranial high-grade stenosis or intracranial aneurysm. 4. Mineralization of basal ganglia which can be seen in the setting of Fahrs disease or carbon monoxide poisoning Findings communicated to Dr. Rodri Shah MD on 06/29/2024 4:[address] Jean Marie Cantrell. [facility], , 06/29/2024 5:00 PM
[2024-06-29] MEDS ORDERED: NALOXONE 0.4 MG/ML 1 ML VIAL IV PRN (17:35)
[2024-06-29] MEDS ORDERED: ONDANSETRON 4 MG/2 ML VIAL IVP PRN (17:35)
[2024-06-29] MEDS ORDERED: MECLIZINE 25 MG TAB PO PRN (17:37)
[2024-06-29] MEDS ORDERED: SODIUM CHLORIDE 0.9% 1,000 ML IV SCH (17:45)
[2024-06-29 18:00] VITALS: BP 136/89; PULSE 69; TEMP 98
== END 2024-06-29 18:24 | disposition home or self-care (01) ==
LOC: EC 13:45 → 6NMEDSUR 17:35 → UNDOADMOB 17:35 → EC 18:24
DX: R42 Dizziness and giddiness (principal); Z87.891 Personal history of nicotine dependence
CPT/HCPCS: 36415; 93005; 80053; 82375; 83735; 84484; 85025; 85610; 85730; 71046; 70496; 70450; 70498; 99284; 96374; 96375; J3360; J2405; Q9967